=== PATIENT | male | born 1955 | race Caucasian/White ===

== ENCOUNTER 2017-05-19 12:51 | Inpatient (IN) | payer OTHER ==
[~2017-05-19] VITALS: Ht 188 cm; Wt 84.4 kg
--- NOTE | 2017-05-19 12:55 | NUR ---
AAOX3, BIBRA 88 FROM [facility] C/O NON RADIATING CHEST PAIN, +ETOH, NAUSEA/VOMITING, R SHOULDER PAIN. 162MG ASA AND 1 NITRO GIVEN IN THE FIELD. PATIENT PLACED ON MONITOR, ASSISTED TO HOSPITAL GOWN. DR ROSA AT BS FOR EVAL. RR IS EVEN AND UNLABORED WITH NAD NOTED. SKIN IS WARM AND DRY.
[2017-05-19] MEDS ORDERED: ONDANSETRON HCL/PF 4 MG/2 ML VIAL IVP ONE (13:00)
[2017-05-19] MEDS ORDERED: IV NS 0.9% 1,000 ML BAG IV ONE ×2 (13:00→13:30)
[2017-05-19] MEDS ORDERED: ONDANSETRON HCL/PF 4 MG/2 ML VIAL ONE (13:02)
[2017-05-19 13:06] LABS: BASOPHILS # (AUTO) 0.2 /CMM (0.0-0.2); BASOPHILS % (AUTO) 1.9 % (0.0-2.0); EOSINOPHILS % (AUTO) 0.5 % (0.0-6.0); HEMATOCRIT 56 % (39-51); LYMPHOCYTES # (AUTO) 3.1 /CMM (0.8-4.8); LYMPHOCYTES % (AUTO) 35.4 % (20.0-44.0); MEAN CORPUSCULAR HEMOGLOBIN 34 PG (26.0-33.0); MEAN CORPUSCULAR HGB CONC 35 g/dl (31.0-36.0); MEAN CORPUSCULAR VOLUME 99 fL (80-96); MONOCYTES # (AUTO) 0.8 /CMM (0.1-1.30); MONOCYTES % (AUTO) 9.1 % (2.0-12.0); NEUTROPHILS # (AUTO) 4.7 /CMM (1.8-8.9); NEUTROPHILS % (AUTO) 53.1 % (43.0-81.0); PLATELET COUNT (AUTO) 196 /CMM (150-450); RDW COEFFICIENT OF VARIATION 12.7 (11.5-15.0); RED BLOOD CELL COUNT(AUTO) 5.61 MIL/uL (4.5-6.0); WHITE BLOOD COUNT (AUTO) 8.8 K/uL (4.3-11.0)
[2017-05-19 13:07] LABS: HEMOGLOBIN 19.3 g/dL (13.5-17.5)
[2017-05-19 13:13] LABS: CALCIUM, SERUM 8.5 mg/dL (8.5-10.1); CARBON DIOXIDE 26 mmol/L (21-32); CHLORIDE 104 mmol/L (98-107); CREATININE 0.7 mg/dL (0.6-1.3); GLUCOSE 104 mg/dL (74-106); SODIUM SERUM 140 mmol/L (136-145); UREA NITROGEN, BLOOD 10 mg/dL (7-18)
[2017-05-19 13:18] LABS: INR 0.89 (0.85-1.15)
[2017-05-19 13:20] LABS: ALCOHOL, BLOOD 363 mg/dL (0-0); SALICYLATE 3.4 mg/dL (2.8-20.0)
[2017-05-19 13:21] LABS: TROPONIN I < 0.017 ng/mL (0.00-0.056)
--- NOTE | 2017-05-19 13:21 | NUR ---
DR ROSA AT TALKING TO THE PATIENT.
[2017-05-19 13:22] LABS: ACETAMINOPHEN 0 ug/ml (10-30)
--- NOTE | 2017-05-19 13:30 | NUR ---
CALLED [employer] AIR TESTER WAS PAGED.
[2017-05-19 13:44] LABS: ALBUMIN 3.6 g/dL (3.4-5.0); BILIRUBIN,DIRECT 0.1 mg/dL (0.0-0.2); BILIRUBIN,TOTAL 0.5 mg/dL (0.2-1.0); TOTAL PROTEIN, SERUM 7.5 g/dL (6.4-8.2)
[2017-05-19 14:00] VITALS: BP 139/90
[2017-05-19] MEDS ORDERED: NITROGLYCERIN 0.4 MG/TAB BOTTLE SL PRN (14:00)
[2017-05-19] MEDS ORDERED: IV NS 0.9% 1,000 ML IV PRN (14:00)
[2017-05-19] MEDS ORDERED: LORAZEPAM 1 MG TABLET PO PRN (14:00)
[2017-05-19] MEDS ORDERED: DOCUSATE SODIUM 100 MG CAPSULE PO PRN (14:00)
[2017-05-19] MEDS ORDERED: ONDANSETRON HCL/PF 4 MG/2 ML VIAL IVP PRN (14:00)
[2017-05-19] MEDS ORDERED: HYDROMORPHONE INJ 0.5 MG/0.5 ML SYRINGE IV PRN (14:00)
[2017-05-19] MEDS ORDERED: MORPHINE SULFATE INJ 4 MG/ML DISP.SYRIN IV PRN (14:00)
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
[2017-05-19] MEDS ORDERED: THIAMINE IV SCH (15:00)
[2017-05-19] MEDS ORDERED: NS 0.9% IV SCH ×2 (15:00)
[2017-05-19] MEDS ORDERED: FOLIC ACID IV SCH (15:00)
[2017-05-19 15:21] LABS: LYMPHOCYTES % (MANUAL) 35 % (16-48); NEUTROPHILS % (MANUAL) 55 (42-76)
[2017-05-19 15:22] LABS: MONOCYTES % (MANUAL) 10 % (0-11.0)
--- NOTE | 2017-05-19 16:14 | NUR ---
SIDE LASTER NOTE PATIENT REFUSING TELE MONITOR AND VITAL SIGNS AT THIS TIME. EXPLAINED RISKS AND BENEFITS x3, PATIENT STILL REFUSED.
--- NOTE | 2017-05-19 18:48 | NUR ---
RN CLOSING NOTE PATIENT IS ALERT AND ORIENTED X3. NO PAIN AT THIS TIME. NO SOB OR DISTRESS NOTED. ALL DUE MEDICATIONS GIVEN ORDERED. ALL NURSING CARE NEEDS ATTENDED TO NEEDED. IV REMOVED, SKIN INTACT. ALL BELONGINGS WITH PATIENT. PATIENT STATED " I DONT WANT TO STAY HERE I AM GOING HOME. MD NOTIFIED, SERVICE DELIVERY MANAGER NOTIFIED. DOCUMENTS CHARTED. [id number]
[2017-05-19 19:14] LABS: THYROID STIMULATING HORMONE 0.164 uIU/mL (0.358-3.74); URIC ACID 5.4 mg/dL (2.6-7.2)
[2017-05-19] MEDS ORDERED: CARVEDILOL 12.5 MG TABLET PO SCH (21:00)
[2017-05-19] MEDS ORDERED: SIMVASTATIN 20 MG TABLET PO SCH (22:00)
[2017-05-20] MEDS ORDERED: ASPIRIN 81 MG TAB.CHEW PO SCH (09:00)
== END 2017-05-19 19:02 | disposition left against medical advice (07) | DRG 205 ==
LOC: ER 12:52 → EDBD 13:01 → TELE 13:43 → MED 18:28
PROVIDERS: ADMIT Internal Medicine; ATTEND Internal Medicine
DX: M94.0 Chondrocostal junction syndrome [Tietze] (principal); G93.41 Metabolic encephalopathy; D75.1 Secondary polycythemia; S22.41XA Multiple fractures of ribs, right side, initial encounter for closed fracture; D58.2 Other hemoglobinopathies; E86.0 Dehydration; M25.511 Pain in right shoulder; I10 Essential (primary) hypertension; F10.129 Alcohol abuse with intoxication, unspecified; Y90.8 Blood alcohol level of 240 mg/100 ml or more; D75.89 Other specified diseases of blood and blood-forming organs; X58.XXXA Exposure to other specified factors, initial encounter; Y93.89 Activity, other specified; Y92.009 Unspecified place in unspecified non-institutional (private) residence as the place of occurrence of the external cause
CPT/HCPCS: 36415; 71045-TC; 73030-TC; 80048-TC; 80076-TC; 82306; 82728-TC; 82746; 83540-TC; 83615-TC; 83690-TC; 84443-TC; 84484-TC; 84550-TC; 85025-TC; 85730-TC; 87081-TC; 93307-TC; A4216; A4606; G0480; J2405; J3411; J3490; J7030; Z7610